=== PATIENT | male | born 1975 | race Caucasian/White ===

== ENCOUNTER 2021-03-28 13:35 | Emergency (ER) | payer OTHER, SELFPAY ==
[2021-03-28] VITALS (15 sets, daily range): BP systolic 115–136; BP diastolic 70–93; PULSE 74–96; RESP 20–27; TEMP 36.7; O2SAT 95–98
--- NOTE | 2021-03-28 13:52 | DI.RAD.S_ITS ---
PROCEDURE: XR CHEST 1V INDICATIONS: chest pain TECHNIQUE: One view of the chest was acquired. COMPARISON: None. FINDINGS: Surgical changes and devices: None. Lungs and pleura: Lungs are clear. No pleural effusions or pneumothorax. Mediastinum: Mediastinal contours appear normal. Heart size is normal. Bones and chest wall: No suspicious bony lesions. Overlying soft tissues appear unremarkable. IMPRESSION: No acute cardiopulmonary process demonstrated radiographically. Dictated by: Mariano Garcia M.D. on 03/28/2021 at 14:54 Approved by: Mariano Garcia M.D. on 03/28/2021 at 14:54
[2021-03-28 14:19] LABS: COVID19 -Nasal RAPID Negative (Negative)
[2021-03-28 14:21] LABS: Add Manual Diff / Slide Review NO; Basophils Absolute Auto 100 /uL (0-100); Eosinophils Absolute Auto 300 /uL (0-450); Eosinophils Percent Auto 3.2 % (2-4); Hematocrit 39.7 % (41-53); Hemoglobin 13.8 g/dL (13.5-17.5); Lymphocytes Absolute Auto 2300 /uL (1100-4500); Mean Corpuscular HGB Conc 34.8 % (30-36); Mean Corpuscular Hemoglobin 29.9 PG (26-34); Mean Corpuscular Volume 86.1 fL (80-100); Monocytes Absolute Auto 700 /uL (0-900); Monocytes Percent Auto 7.8 % (3-14); Neutrophils Absolute Auto 5500 /uL (1500-7000); Platelet Count 234 X10^3/uL (150-400); Red Blood Cell Count 4.61 X10^6/uL (4.5-5.9); Red Cell Distribution Width 12.8 % (11.6-14.8); White Blood Cell Count 8.9 X10^3/uL (4.5-11.0)
[2021-03-28 14:30] LABS: Alanine Aminotransferase 34 IU/L (<50); Albumin 4.5 g/dL (3.5-5.0); Albumin Globulin Ratio 1.3 (1.0-2.8); Alkaline Phosphatase 66 U/L (38-126); Aspartate Aminotransferase 25 IU/L (17-59); BUN Creatinine Ratio 13.6 (6-22); Bilirubin Total 0.4 mg/dL (0.2-1.3); Blood Urea Nitrogen 14 mg/dL (9-20); Calcium 9.8 mg/dL (8.4-10.2); Carbon Dioxide 28 mmol/L (22-32); Chloride 104 mmol/L (98-107); Creatine Kinase 228 U/L (55-170); Estimated Glomerular Filt Rate > 60.0 mL/min (>60); Globulin 3.4 g/dL (1.7-4.1); Glucose 118 mg/dL (70-100); HEMOLYSIS < 15 (0-50); Lipase 60 U/L (23-300); Potassium 4.8 mmol/L (3.4-5.1); Sodium 137 mmol/L (137-145); Total Protein 7.9 g/dL (6.3-8.2)
[2021-03-28 14:41] LABS: Troponin I < 0.012 ng/mL (0.01-0.034)
[2021-03-28 14:45] LABS: Creatine Kinase MB 2.36 ng/mL (<2.37)
--- NOTE | 2021-03-28 17:07 | ED_ITS ---
HPI - Chest Pain <Rojelio Ferro PA-C - Last Filed: 03/28/21 21:29> General Chief Complaint: Chest Pain Stated Complaint: Trouble breathing, chest/back pain Time Seen by Provider: 03/28/21 15:37 History of Present Illness HPI narrative: 45-year-old male with no reported past medical history presents to the ED with 1 day of left-sided chest pain. Patient reports that he had acute onset of left- sided chest pain that is sharp, aggravated by inspiration, radiates to the shoulder blade. Patient states he has been trying to shallow breathing in order to reduce the pain. Patient denies fever, chills. Patient endorses associated shortness of breath. Patient endorses cough for a week, with some occasional blood-tinged sputum. Patient is not vaccinated for COVID. Patient denies nausea, vomiting, lightheadedness, dizziness, syncope. Patient is a daily smoke r for the past 24 years. Patient denies history of blood clots. Patient denies trauma. Patient is unsure if his pain feels musculoskeletal. Patient has a history of GERD and gas pains that sometimes occur in his shoulders. Denies recent travel, immobilization, history of blood clots, leg swelling. Related Data Previous Rx's Medication Instructions Recorded apixaban 5 mg (74 tabs) tablets in See Rx Instructions .ROUTE 03/28/21 a dose pack ([employer] DVT-PE Treat .COMPLEX #74 ea 30D Start) Allergies Allergy/AdvReac Type Severity Reaction Status Date / Time No Known Drug Allergies Allergy Verified 03/28/21 13:46 Review of Systems <Rojelio Ferro PA-C - Last Filed: 03/28/21 21:29> Review of Systems ROS Unobtainable: All systems reviewed & are unremarkable except as noted in HPI and below Constitutional Constitutional: Denies chills, Denies fatigue, Denies fever(s), Denies frequent falls, Denies lethargy and Denies weakness Eyes Eyes: Denies change in vision, Denies eye discharge, Denies irritation and Denies loss of vision ENT Ears, Nose, Mouth, and Throat: Denies change in voice, Denies dizziness, Denies neck pain, Denies sore throat and Denies throat swelling Cardiovascular Cardiovascular: Reports chest pain, Denies irregular heart rhythm, Denies lightheadedness, Denies palpitations, Reports dyspnea, Denies dyspnea on exertion and Denies orthopnea Respiratory Respiratory: Denies cough, Reports dyspnea, Denies dyspnea on exertion and Denies wheezing Gastrointestinal Gastrointestinal: Denies abdominal pain, Denies change in bowel habits, Denies diarrhea, Denies nausea and Denies vomiting Genitourinary Genitourinary: Denies hematuria, Denies flank pain, Denies urinary incontinence and Denies urinary urgency Musculoskeletal Musculoskeletal: Denies back pain, Denies muscle weakness, Denies neck pain, Denies numbness and Denies tingling Integumentary/Breasts Skin/Breast: Denies pruritus, Denies erythema, Denies rash and Denies wounds Neurologic Neurologic: Denies behavioral changes, Denies confusion, Denies dizziness, Denies frequent falls, Denies loss of vision, Denies numbness, Denies tingling and Denies weakness Psychiatric Psychiatric: Denies anxiety, Denies behavioral changes, Denies confusion, Denies depression, Denies homicidal ideation and Denies suicidal ideation Endocrine Endocrine: Denies fatigue, Denies flushing and Denies palpitations Hematologic/Lymphatic Hematologic/Lymphatic: Denies easy bruising Allergic/Immunologic Allergic/Immunologic: Denies urticaria, Denies throat swelling and Denies wheezing Patient History <Rojelio Ferro PA-C - Last Filed: 03/28/21 21:29> Social History Smoking Status: Current every day smoker Smoking Status: Current every day smoker tobacco type: cigarettes alcohol intake frequency: holidays/special occasions only Substance Use Type: marijuana Exam <Rojelio Ferro PA-C - Last Filed: 03/28/21 21:29> Initial Vital Signs Initial Vital Signs: Vital Signs Temperature 98.1 F 03/28/21 13:47 Pulse Rate 96 H 03/28/21 13:47 Respiratory Rate 24 03/28/21 13:47 Blood Pressure 136/93 H 03/28/21 13:47 Pulse Oximetry 98 03/28/21 13:47 Const General: cooperative, healthy appearing and comfortable [facility] Head: normal to inspection Eyes General: appearance normal, both eyes and all related structures Neck Neck: normal visual inspection Chest Chest: normal inspection of the chest Resp Effort & Inspection: normal respiratory effort Auscultation: clear to auscultation bilaterally Cardio Rate: regular rate Rhythm: regular rhythm GI Other: Abdomen is soft, nondistended, nontender to palpation. General: No CVA tenderness Back/Spine/Pelvis Back: normal to inspection Skin General: no rashes or lesions noted Neuro General: patient alert, patient awake and patient oriented x3 Extrem General: normal to inspection Psych Appearance: grossly normal <Thuy Murry MD - Last Filed: 04/04/21 04:17> Initial Vital Signs Initial Vital Signs: Vital Signs Temperature 98.1 F 03/28/21 13:47 Pulse Rate 96 H 03/28/21 13:47 Respiratory Rate 24 03/28/21 13:47 Blood Pressure 136/93 H 03/28/21 13:47 Pulse Oximetry 98 03/28/21 13:47 Course <Rojelio Ferro PA-C - Last Filed: 03/28/21 21:29> Orders Ordered: Discontinued Medications Acetaminophen (Acetaminophen 325 Mg Tablet) 975 mg PO NOW ONE Stop: 03/28/21 17:23 Last Admin: 03/28/21 17:29 Dose: 975 mg Documented by: MICHELLE Al Hydrox/Mg Hydrox/Simethicone 20 ml/ Lidocaine HCl 15 ml 0 ml PO NOW ONE Stop: 03/28/21 17:23 Last Admin: 03/28/21 17:29 Dose: 15 ml Documented by: MICHELLE Famotidine (Famotidine 20 Mg/2 Ml Vial) 20 mg IV NOW JEANNIE Last Admin: 03/28/21 17:29 Dose: 20 mg Documented by: MICHELLE Metoclopramide HCl (Metoclopramide 10 Mg/2 Ml Inj) 10 mg IV NOW ONE Stop: 03/28/21 21:15 Vital Signs Vital signs: Vital Signs - 8 hr 03/28/21 13:47 03/28/21 13:59 03/28/21 14:00 Temperature 98.1 F Pulse Rate 96 H 84 83 Respiratory Rate 24 27 H 25 H Blood Pressure 136/93 H Pulse Oximetry 98 97 03/28/21 14:01 03/28/21 14:30 03/28/21 15:00 Temperature Pulse Rate 82 79 77 Respiratory Rate 27 H 25 H 22 Blood Pressure 115/75 122/78 121/80 Pulse Oximetry 98 96 96 03/28/21 15:30 03/28/21 16:00 03/28/21 16:30 Temperature Pulse Rate 76 78 80 Respiratory Rate 20 22 20 Blood Pressure 121/80 117/81 117/77 Pulse Oximetry 95 96 95 03/28/21 17:00 03/28/21 17:30 03/28/21 18:00 Temperature Pulse Rate 78 81 80 Respiratory Rate 22 22 24 Blood Pressure 120/83 123/87 117/82 Pulse Oximetry 96 97 96 03/28/21 18:30 03/28/21 19:00 03/28/21 19:35 Temperature Pulse Rate 78 74 Respiratory Rate 20 21 Blood Pressure 118/70 118/70 Pulse Oximetry 96 96 <Thuy Murry MD - Last Filed: 04/04/21 04:17> Orders Ordered: Discontinued Medications Acetaminophen (Acetaminophen 325 Mg Tablet) 975 mg PO NOW ONE Stop: 03/28/21 17:23 Last Admin: 03/28/21 17:29 Dose: 975 mg Documented by: MICHELLE Al Hydrox/Mg Hydrox/Simethicone 20 ml/ Lidocaine HCl 15 ml 0 ml PO NOW ONE Stop: 03/28/21 17:23 Last Admin: 03/28/21 17:29 Dose: 15 ml Documented by: MICHELLE Famotidine (Famotidine 20 Mg/2 Ml Vial) 20 mg IV NOW JEANNIE Last Admin: 03/28/21 17:29 Dose: 20 mg Documented by: MICHELLE Metoclopramide HCl (Metoclopramide 10 Mg/2 Ml Inj) 10 mg IV NOW ONE Stop: 03/28/21 21:15 Vital Signs Vital signs: Vital Signs - 8 hr 03/28/21 13:47 03/28/21 13:59 03/28/21 14:00 Temperature 98.1 F Pulse Rate 96 H 84 83 Respiratory Rate 24 27 H 25 H Blood Pressure 136/93 H Pulse Oximetry 98 97 03/28/21 14:01 03/28/21 14:30 03/28/21 15:00 Temperature Pulse Rate 82 79 77 Respiratory Rate 27 H 25 H 22 Blood Pressure 115/75 122/78 121/80 Pulse Oximetry 98 96 96 03/28/21 15:30 03/28/21 16:00 03/28/21 16:30 Temperature Pulse Rate 76 78 80 Respiratory Rate 20 22 20 Blood Pressure 121/80 117/81 117/77 Pulse Oximetry 95 96 95 01/31/22 17:00 03/28/21 17:30 03/28/21 18:00 Temperature Pulse Rate 78 81 80 Respiratory Rate 22 22 24 Blood Pressure 120/83 123/87 117/82 Pulse Oximetry 96 97 96 03/28/21 18:30 03/28/21 19:00 03/28/21 19:35 Temperature Pulse Rate 78 74 Respiratory Rate 20 21 Blood Pressure 118/70 118/70 Pulse Oximetry 96 96 MDM - Chest Pain <Rojelio Ferro PA-C - Last Filed: 03/28/21 21:29> Lab Data Lab results narrative: D-dimer elevated. Result diagrams: 03/28/21 14:13 03/28/21 14:13 Labs: Lab Results 03/28/21 03/28/21 03/28/21 Range/Units 13:50 14:13 14:13 WBC 8.9 (4.5-11.0) X10^3/uL RBC 4.61 (4.5-5.9) X10^6/uL Hgb 13.8 (13.5-17.5) g/dL Hct 39.7 L (41-53) % MCV 86.1 (80-100) fL MCH 29.9 (26-34) PG MCHC 34.8 (30-36) % RDW 12.8 (11.6-14.8) % Plt Count 234 (150-400) X10^3/uL Neut % (Auto) 62.0 (50-75) % Lymph % (Auto) 26.0 (25-40) % [place] % (Auto) 7.8 (3-14) % Eos % (Auto) 3.2 (2-4) % Baso % (Auto) 1.0 (0-2) % Neut # (Auto) 5500 (2685-5013) /uL Lymph # (Auto) 2300 (6347-7967) /uL [place] # (Auto) 700 (0-900) /uL Eos # (Auto) 300 (0-450) /uL Baso # (Auto) 100 (0-100) /uL D-Dimer (<230) ng/mL Sodium 137 (137-145) mmol/L Potassium 4.8 (3.4-5.1) mmol/L Chloride 104 (98-107) mmol/L Carbon Dioxide 28 (22-32) mmol/L BUN 14 (9-20) mg/dL Creatinine 1.03 (0.66-1.25) mg/dL Estimated GFR > 60.0 (>60) mL/min BUN/Creatinine Ratio 13.6 (6-22) Glucose 118 H (70-100) mg/dL Calcium 9.8 (8.4-10.2) mg/dL Magnesium 2.0 (1.6-2.3) mg/dL Total Bilirubin 0.4 (0.2-1.3) mg/dL AST 25 (17-59) IU/L ALT 34 (<50) IU/L Alkaline Phosphatase 66 (38-126) U/L Total Creatine Kinase 228 H (55-170) U/L CK-MB (CK-2) 2.36 (<2.37) ng/mL CK-MB (CK-2) Rel Index 1.0 L (1.5-5.0) % Troponin I < 0.012 (0.01-0.034) ng/mL NT-Pro-B Natriuret Pep (<125) pg/mL Total Protein 7.9 (6.3-8.2) g/dL Albumin 4.5 (3.5-5.0) g/dL Globulin 3.4 (1.7-4.1) g/dL Albumin/Globulin Ratio 1.3 (1.0-2.8) Lipase 60 (23-300) U/L SARS-CoV-2 (PCR) Negative (Negative) 03/28/21 03/28/21 Range/Units 14:13 14:13 WBC (4.5-11.0) X10^3/uL RBC (4.5-5.9) X10^6/uL Hgb (13.5-17.5) g/dL Hct (41-53) % MCV (80-100) fL MCH (26-34) PG MCHC (30-36) % RDW (11.6-14.8) % Plt Count (150-400) X10^3/uL Neut % (Auto) (50-75) % Lymph % (Auto) (25-40) % [place] % (Auto) (3-14) % Eos % (Auto) (2-4) % Baso % (Auto) (0-2) % Neut # (Auto) (0878-3275) /uL Lymph # (Auto) (8381-9347) /uL [place] # (Auto) (0-900) /uL Eos # (Auto) (0-450) /uL Baso # (Auto) (0-100) /uL D-Dimer 459 H (<230) ng/mL Sodium (137-145) mmol/L Potassium (3.4-5.1) mmol/L Chloride (98-107) mmol/L Carbon Dioxide (22-32) mmol/L BUN (9-20) mg/dL Creatinine (0.66-1.25) mg/dL Estimated GFR (>60) mL/min BUN/Creatinine Ratio (6-22) Glucose (70-100) mg/dL Calcium (8.4-10.2) mg/dL Magnesium (1.6-2.3) mg/dL Total Bilirubin (0.2-1.3) mg/dL AST (17-59) IU/L ALT (<50) IU/L Alkaline Phosphatase (38-126) U/L Total Creatine Kinase (55-170) U/L CK-MB (CK-2) (<2.37) ng/mL CK-MB (CK-2) Rel Index (1.5-5.0) % Troponin I (0.01-0.034) ng/mL NT-Pro-B Natriuret Pep 22 (<125) pg/mL Total Protein (6.3-8.2) g/dL Albumin (3.5-5.0) g/dL Globulin (1.7-4.1) g/dL Albumin/Globulin Ratio (1.0-2.8) Lipase (23-300) U/L SARS-CoV-2 (PCR) (Negative) Imaging Data Chest x-ray: Radiologist's Impression: PROCEDURE:? XR CHEST 1V ? INDICATIONS:? chest pain ? TECHNIQUE:? One view of the chest was acquired.? ? COMPARISON:? None. ? FINDINGS:? ? Surgical changes and devices:? None.? ? Lungs and pleura:? Lungs are clear.? No pleural effusions or pneumothorax.? ? Mediastinum:? Mediastinal contours appear normal.? Heart size is normal.? ? Bones and chest wall:? No suspicious bony lesions.? Overlying soft tissues appear unremarkable.? ? IMPRESSION:? No acute cardiopulmonary process demonstrated radiographically. ? ? Dictated by: Mariano Garcia M.D. on 03/28/2021 at 14:54 ? ? Approved by: Mariano Garcia M.D. on 03/28/2021 at 14:54 ? CT scan - chest: Radiologist's Impression: PROCEDURE:? CT ANGIO CHEST PE PROTOCOL ? INDICATIONS:? ?PE, elevated dimer, pleuritic CP, SOB ? TECHNIQUE:? After the administration of intravenous contrast, 2 mm thick sections acquired from the pulmonary apices to the posterior costophrenic angles.? 3-dimensional maximum intensity projection (MIP) coronal and sagittal reformats were then acquired through the thorax.? For radiation dose reduction, the following was used:? automated exposure control, adjustment of mA and/or kV according to patient size.? ? COMPARISON:? None. ? FINDINGS:? Image quality:? Excellent.? ? Pulmonary arteries:? Several filling defects noted in the right lower lobe subsegmental pulmonary arteries and consistent with small pulmonary emboli. ? Lungs and pleura:? Wedge-shaped pulmonary infiltrate noted in the periphery of the is superior segment left lower lobe.? Both pleural spaces are clear. ? Mediastinum:? Heart size is normal, without pericardial effusion.? No mediastinal or hilar adenopathy.? Thoracic aorta is normal in caliber and enhancement.? Esophagus is normal in caliber, without hiatal hernia.? ? Bones and chest wall:? No suspicious bony lesions.? Ribs and thoracic spine appear intact throughout.? Thyroid gland unremarkable.? No axillary or supraclavicular ad enopathy.? ? Abdomen:? Visualized upper abdominal solid organs appear normal in the early arterial phase of enhancement.? ? IMPRESSION:? ? 1. Subsegmental right lower lobe of pulmonary emboli without evidence of right heart strain ? 2. Left lower lobe small peripheral wedge-shaped pulmonary infiltrate.? ? Note:? Critical results were discussed with LUCAS Ferro at 05:39 PM [place] time on 03/28/21 ? Approved by: Khoi Murphy M.D. on 03/28/2021 at 17:40? ECG Data Interpretation: Normal sinus rhythm, no acute ST-T changes, no axis deviation. MDM Narrative Medical decision making narrative: 45-year-old male with no reported past medical history presents to the ED with 1 day of left-sided chest pain. Concern for ACS versus PE versus acute heart failure versus musculoskeletal sprain/strain versus GERD. Given history of hemoptysis, acute onset of inspirational, sharp chest pain, shortness of breath, suspicion for PE. Will order labs, troponin, EKG, chest x-ray, D-dimer. Will give GI cocktail, Pepcid AC, Tylenol for symptoms. Will reassess. CT chest shows subsegmental PEs. Will start patient on Eliquis. ED return precautions discussed with patient. Patient verbalized understanding. Patient to follow-up with PCP. Discharge patient. <Thuy Murry MD - Last Filed: 04/04/21 04:17> Lab Data Labs: Lab Results 03/28/21 03/28/21 03/28/21 Range/Units 13:50 14:13 14:13 WBC 8.9 (4.5-11.0) X10^3/uL RBC 4.61 (4.5-5.9) X10^6/uL Hgb 13.8 (13.5-17.5) g/dL Hct 39.7 L (41-53) % MCV 86.1 (80-100) fL MCH 29.9 (26-34) PG MCHC 34.8 (30-36) % RDW 12.8 (11.6-14.8) % Plt Count 234 (150-400) X10^3/uL Neut % (Auto) 62.0 (50-75) % Lymph % (Auto) 26.0 (25-40) % [place] % (Auto) 7.8 (3-14) % Eos % (Auto) 3.2 (2-4) % Baso % (Auto) 1.0 (0-2) % Neut # (Auto) 5500 (2781-9121) /uL Lymph # (Auto) 2300 (3300-2389) /uL [place] # (Auto) 700 (0-900) /uL Eos # (Auto) 300 (0-450) /uL Baso # (Auto) 100 (0-100) /uL D-Dimer (<230) ng/mL Sodium 137 (137-145) mmol/L Potassium 4.8 (3.4-5.1) mmol/L Chloride 104 (98-107) mmol/L Carbon Dioxide 28 (22-32) mmol/L BUN 14 (9-20) mg/dL Creatinine 1.03 (0.66-1.25) mg/dL Estimated GFR > 60.0 (>60) mL/min BUN/Creatinine Ratio 13.6 (6-22) Glucose 118 H (70-100) mg/dL Calcium 9.8 (8.4-10.2) mg/dL Magnesium 2.0 (1.6-2.3) mg/dL Total Bilirubin 0.4 (0.2-1.3) mg/dL AST 25 (17-59) IU/L ALT 34 (<50) IU/L Alkaline Phosphatase 66 (38-126) U/L Total Creatine Kinase 228 H (55-170) U/L CK-MB (CK-2) 2.36 (<2.37) ng/mL CK-MB (CK-2) Rel Index 1.0 L (1.5-5.0) % Troponin I < 0.012 (0.01-0.034) ng/mL NT-Pro-B Natriuret Pep (<125) pg/mL Total Protein 7.9 (6.3-8.2) g/dL Albumin 4.5 (3.5-5.0) g/dL Globulin 3.4 (1.7-4.1) g/dL Albumin/Globulin Ratio 1.3 (1.0-2.8) Lipase 60 (23-300) U/L SARS-CoV-2 (PCR) Negative (Negative) 03/28/21 03/28/21 Range/Units 14:13 14:13 WBC (4.5-11.0) X10^3/uL RBC (4.5-5.9) X10^6/uL Hgb (13.5-17.5) g/dL Hct (41-53) % MCV (80-100) fL MCH (26-34) PG MCHC (30-36) % RDW (11.6-14.8) % Plt Count (150-400) X10^3/uL Neut % (Auto) (50-75) % Lymph % (Auto) (25-40) % [place] % (Auto) (3-14) % Eos % (Auto) (2-4) % Baso % (Auto) (0-2) % Neut # (Auto) (6470-4583) /uL Lymph # (Auto) (6793-8342) /uL [place] # (Auto) (0-900) /uL Eos # (Auto) (0-450) /uL Baso # (Auto) (0-100) /uL D-Dimer 459 H (<230) ng/mL Sodium (137-145) mmol/L Potassium (3.4-5.1) mmol/L Chloride (98-107) mmol/L Carbon Dioxide (22-32) mmol/L BUN (9-20) mg/dL Creatinine (0.66-1.25) mg/dL Estimated GFR (>60) mL/min BUN/Creatinine Ratio (6-22) Glucose (70-100) mg/dL Calcium (8.4-10.2) mg/dL Magnesium (1.6-2.3) mg/dL Total Bilirubin (0.2-1.3) mg/dL AST (17-59) IU/L ALT (<50) IU/L Alkaline Phosphatase (38-126) U/L Total Creatine Kinase (55-170) U/L CK-MB (CK-2) (<2.37) ng/mL CK-MB (CK-2) Rel Index (1.5-5.0) % Troponin I (0.01-0.034) ng/mL NT-Pro-B Natriuret Pep 22 (<125) pg/mL Total Protein (6.3-8.2) g/dL Albumin (3.5-5.0) g/dL Globulin (1.7-4.1) g/dL Albumin/Globulin Ratio (1.0-2.8) Lipase (23-300) U/L SARS-CoV-2 (PCR) (Negative) Discharge Plan Departure Patient Disposition: Home Clinical Impression: Pulmonary embolism Instructions: DI for Pulmonary Embolism Activity Restrictions/Additional Instructions: You were evaluated in the ED today for chest pain. Your CT chest showed some pulmonary emboli or PEs. You have been started on anticoagulation with Eliquis. Please take the medications per instructions on the package. You will need longer-term anticoagulation for 3-6 months for which you should follow-up with your PCP as soon as possible. Please return to the ED if you have worsening symptoms such as increasing chest pain, worsening shortness of breath. Prescriptions: New Eliquis DVT-PE Treat 30D Start 5 mg (74 tabs) tablets,dose pack See Rx Instructions .ROUTE .COMPLEX Qty: 74 0RF Rx Instructions: orally per package directions <Thuy Murry MD - Last Filed: 04/04/21 04:17> Cosign ED Attending Cosreannaature Attestation: I was immediately available in the department for consultation throughout this patient's visit. I agree with documentation as above. Thuy Murry MD
[2021-03-28] MEDS: FAMOTIDINE 20 MG/2 ML VIAL IV (17:29)
[2021-03-28] MEDS: ACETAMINOPHEN 325 MG TABLET 975 MG PO (17:29)
[2021-03-28] MEDS: MAG HYDROX/ALUMINUM/SIMETH SUS 20 ML, LIDOCAINE VISCOUS 2% 15 ML PO (17:29)
[2021-03-28 17:39] LABS: D Dimer 459 ng/mL (<230)
--- NOTE | 2021-03-28 17:52 | DI.CT.S_ITS ---
PROCEDURE: CT ANGIO CHEST PE PROTOCOL INDICATIONS: ?PE, elevated dimer, pleuritic CP, SOB TECHNIQUE: After the administration of intravenous contrast, 2 mm thick sections acquired from the pulmonary apices to the posterior costophrenic angles. 3-dimensional maximum intensity projection (MIP) coronal and sagittal reformats were then acquired through the thorax. For radiation dose reduction, the following was used: automated exposure control, adjustment of mA and/or kV according to patient size. COMPARISON: None. FINDINGS: Image quality: Excellent. Pulmonary arteries: Several filling defects noted in the right lower lobe subsegmental pulmonary arteries and consistent with small pulmonary emboli. Lungs and pleura: Wedge-shaped pulmonary infiltrate noted in the periphery of the is superior segment left lower lobe. Both pleural spaces are clear. Mediastinum: Heart size is normal, without pericardial effusion. No mediastinal or hilar adenopathy. Thoracic aorta is normal in caliber and enhancement. Esophagus is normal in caliber, without hiatal hernia. Bones and chest wall: No suspicious bony lesions. Ribs and thoracic spine appear intact throughout. Thyroid gland unremarkable. No axillary or supraclavicular adenopathy. Abdomen: Visualized upper abdominal solid organs appear normal in the early arterial phase of enhancement. IMPRESSION: 1. Subsegmental right lower lobe of pulmonary emboli without evidence of right heart strain 2. Left lower lobe small peripheral wedge-shaped pulmonary infiltrate. Note: Critical results were discussed with LUCAS Ferro at 05:39 PM [place] time on 03/28/21 Approved by: Khoi Murphy M.D. on 03/28/2021 at 17:40
[2021-03-28 18:05] LABS: NT-proBNP (BNP-Adult 18+) 22 pg/mL (<125)
--- NOTE | 2021-03-28 18:49 | PC.NURSE ---
pt resting quietly in room waiting ct results and disposition
== END 2021-03-28 19:38 | disposition home or self-care (01) ==
PROVIDERS: Emergency Medicine; Emergency Provider Student in an Organized Health Care Education/Training Program
DX: I26.94 Multiple subsegmental thrombotic pulmonary emboli without acute cor pulmonale (principal); Z20.822 Contact with and (suspected) exposure to COVID-19
CPT/HCPCS: 36415; 71045; 71275; 80053; 82550; 82553; 83690; 83735; 83880; 84484; 85025; 85379; 87635; 93005; 96374; 99285; C9803; Q9967

== ENCOUNTER 2021-09-20 20:31 | Emergency (ER) | payer OTHER, SELFPAY ==
[2021-09-20 20:40] VITALS: BP 141/92; PULSE 110; RESP 18; TEMP 36.1; O2SAT 98
[2021-09-20 21:59] VITALS: BP 145/99; PULSE 98; RESP 18; O2SAT 98
--- NOTE | 2021-09-20 22:30 | DI.US.S_ITS ---
PROCEDURE: US SCROTUM INDICATIONS: LEFT TESTICULAR PAIN TECHNIQUE: Real-time scanning was performed of the scrotum and testicles, with image documentation. Color and pulse Doppler interrogation was performed of both testicles. COMPARISON: None. FINDINGS: Right: Testicle is normal in size at 2.5 x 3.5 x 4.7 cm, and homogenous in echotexture. Epididymis is normal in overall size and morphology. No hydrocele or varicoceles. Overlying scrotal skin is normal in thickness. Left: Testicle is normal in size at 2.5 x 3.0 x 4.9 cm, and homogeneous in echotexture. Approximately 5 mm left epididymal head cyst. Epididymis is otherwise normal in overall size and morphology. No hydrocele or varicoceles. Overlying scrotal skin is normal in thickness. Doppler: Color and pulse Doppler demonstrate normal and symmetric arterial flow in both testicles. IMPRESSION: Approximately 5 mm left epididymal head cyst. Otherwise normal study. Dictated by: Mariano Garcia M.D. on 09/20/2021 at 23:57 Approved by: Mariano Garcia M.D. on 09/20/2021 at 23:58
--- NOTE | 2021-09-20 23:45 | ED_ITS ---
HPI - Male Genitourinary General Chief complaint: Urogenital-Male Stated complaint: possible penile injury Time Seen by Provider: 09/20/21 21:56 Source: patient Mode of arrival: Ambulatory History of Present Illness HPI Narrative: 45-year-old male nonsmoker without significant medical history presents with a chief complaint of left testicular pain that started about 1 week ago. He states that he was crawling underneath the deck of his house to do some work when he felt a pulling or tugging sensation and then over the following few days his pain intensified. He denies any obvious swelling, redness or discoloration. He has no dysuria, frequency or urgency. He denies any dizziness, weakness, lightheadedness nor chest pain, shortness of breath or cough. He states the symptoms are improved and episodic at this point time. He states he has a history of epididymitis and also prior urine infections and wanted to be checked Related Data Previous Rx's Medication Instructions Recorded apixaban 5 mg (74 tabs) tablets in See Rx Instructions PO .COMPLEX 03/28/21 a dose pack ([employer] DVT-PE Treat #74 ea 30D Start) Allergies Allergy/AdvReac Type Severity Reaction Status Date / Time No Known Drug Allergies Allergy Verified 03/28/21 13:46 Review of Systems Review of Systems Narrative: GENERAL: Denies chills, fatigue, malaise, fever, sweats. HEENT: Denies sinus pain, ear pain, sore throat, difficulty swallowing, dizziness. RESPIRATORY: Denies dyspnea, cough, wheezing, hemoptysis, sputum. CARDIOVASCULAR: Denies chest pain, palpitations, orthopnea, edema, GASTROINTESTINAL: Denies nausea, vomiting, abdominal pain, diarrhea, constipation, melena. : See HPI MUSCULOSKELETAL: denies weakness, joint pain, or bony pain SKIN: Denies rash, skin lesions, or other NEUROLOGIC: Denies weakness, headache, numbness, change in speech, confusion, seizures, incoordination. PSYCHIATRIC: No concerning psychosocial issues. 12 point review of systems is negative except for those stated above Patient History Social History Smoking Status: Current every day smoker Smoking Status: Current every day smoker tobacco type: cigarettes alcohol intake frequency: holidays/special occasions only Substance Use Type: marijuana Exam Narrative Exam Narrative: GENERAL: [45] year old patient appears stated age. Well-developed patient, in mild distress. HEAD: Atraumatic. Normocephalic. EYES: Pupils equal round and reactive. Extraocular motions intact. No scleral icterus. No injection or drainage. ENT: Nose without bleeding, purulent drainage. Throat without erythema, tonsillar hypertrophy or exudate. Airway patent. NECK: Trachea midline. Non tender CARDIOVASCULAR: Regular rate and rhythm without murmurs, gallops, or rubs. RESPIRATORY: Clear to auscultation. Breath sounds equal bilaterally. No wheezes, rales, or rhonchi. GASTROINTESTINAL: Abdomen soft, non-tender, nondistended. : Minimal tenderness to palpation of the superior pole of the left testicle, no swelling, induration, fluctuance, erythema or discoloration. No penile drainage EXTREMITIES: No edema or joint tenderness. BACK: Nontender without deformity or crepitance. No flank tenderness. NEURO: AOx3. SKIN: No rash or erythema of visible areas Initial Vital Signs Initial Vital Signs: Vital Signs Temperature 97 F L 09/20/21 20:40 Pulse Rate 110 H 09/20/21 20:40 Respiratory Rate 18 09/20/21 20:40 Blood Pressure 141/92 H 09/20/21 20:40 Pulse Oximetry 98 09/20/21 20:40 Oxygen Delivery Method 09/20/21 20:40 Course Orders Ordered: ED Orders 09/20/21 22:30 US scrotum Stat Vital Signs Vital signs: Vital Signs - 8 hr 09/20/21 20:40 09/20/21 21:59 Temperature 97 F L Pulse Rate 110 H 98 H Respiratory Rate 18 18 Blood Pressure 141/92 H 145/99 H Pulse Oximetry 98 98 Oxygen Delivery Method Room Air Room Air MDM - Male Genitourinary Lab Data Labs: Urine Dip Bedside Urine Glucose Negative Bedside Urine Bilirubin - Negative Bedside Urine Ketone - Negative Urine Specific [place] 1.015 Bedside Urine Occult Blood - Negative Bedside Urine pH 6.0 Bedside Urine Protein - Negative Bedside Urine Urobilinogen - Negative Imaging Data US Scrotum: Radiologist's Impression: Luca Alicea??45??M??1975 ? Allergy/Adv: No Known Drug Allergies (More??) Close Scrotum Ultrasound (Signed) Mariano Garcia - 09/20/21 Chest CTA (Signed) Khoi Murphy - 03/28/21 Chest X-Ray (Signed) Mariano Garcia - 03/28/21 [place] [address] Ultrasound Report Signed Patient: Luca Alicea MR#: [id number] : 1975 Acct:[id number] Age/Sex: 45 / M Date of Service: 09/20/21 Loc: ED Accession Number: [id number] ?? Procedure: US scrotum Ordering Provider: Carlos Eduardo Tiwari D.O. PROCEDURE:? US SCROTUM ? INDICATIONS:? LEFT TESTICULAR PAIN ? TECHNIQUE:? Real-time scanning was performed of the scrotum and testicles, with image documentation.? Color and pulse Doppler interrogation was performed of both testicles.? ? COMPARISON:? None. ? FINDINGS:? ? Right:? Testicle is normal in size at 2.5 x 3.5 x 4.7 cm, and homogenous in echotexture.? Epididymis is normal in overall size and morphology.? No hydrocele or nevin icoceles.? Overlying scrotal skin is normal in thickness.? ? Left:? Testicle is normal in size at 2.5 x 3.0 x 4.9 cm, and homogeneous in echotexture.? Approximately 5 mm left epididymal head cyst.? Epididymis is otherwise normal in overall size and morphology.? No hydrocele or varicoceles.? Overlying scrotal skin is normal in thickness.? ? Doppler:? Color and pulse Doppler demonstrate normal and symmetric arterial flow in both testicles.? ? IMPRESSION:? Approximately 5 mm left epididymal head cyst.? Otherwise normal study. ? ? Dictated by: Mariano Garcia M.D. on 09/20/2021 at 23:57 ? ? Approved by: Mariano Garcia M.D. on 09/20/2021 at 23:58 ? Discharge Plan Departure Patient Disposition: Home Clinical Impression: Cyst of epididymis, Left testicular pain Activity Restrictions/Additional Instructions: *You have been diagnosed with [left testicle pain, as we discussed there is no evidence of testicular torsion, urine infection or other obvious source of your discomfort.] *What to do: *Please continue to take your regular medications as directed. [ ] New medication prescriptions sent to your pharmacy: [ ] [ ] New medication written as a paper prescription [ x] No new medications given *Please follow up with your primary care provider in 2-3 days, call for an appointment. Let them know you were seen in the Emergency Department and that we ask that you be seen in follow up. We will electronically transmit a record of today's note if your PCP is in our system *If you do not have a primary care provider please contact the [facility] Resource line at [phone]. They will ask some questions about your medical history and help get you set up with a doctor in the community. *Return to Emergency Department if you should have any new, worsening or concerning symptoms, such as [fever greater than 101 F, shaking chills, worsening pain, persistent vomiting or other bothersome symptoms] Prescriptions: No Action Eliquis DVT-PE Treat 30D Start 5 mg (74 tabs) tablets,dose pack See Rx Instructions .ROUTE .COMPLEX Qty: 74 0RF Rx Instructions: orally per package directions Referrals: ProviderEric [Primary Care Provider] - Visit Report Forms: Patient Portal/API
[2021-09-21 00:13] VITALS: BP 140/90; PULSE 88; RESP 18; O2SAT 98
== END 2021-09-21 00:13 | disposition home or self-care (01) ==
PROVIDERS: Emergency Provider Emergency Medicine
DX: N50.3 Cyst of epididymis (principal); N50.812 Left testicular pain
CPT/HCPCS: 76870; 81003; 99282; 99283

== ENCOUNTER 2022-09-03 11:53 | Emergency (ER) | payer OTHER, SELFPAY ==
[2022-09-03 12:07] VITALS: BP 161/95; PULSE 78; RESP 16; TEMP 36.7; O2SAT 99; BMI 30.9
--- NOTE | 2022-09-03 12:23 | DI.RAD.S_ITS ---
PROCEDURE: XR KUB INDICATIONS: flank pain, dysuria, constipation TECHNIQUE: One view of the abdomen acquired. COMPARISON: None. FINDINGS: Surgical changes and devices: None. Bowel: Bowel gas pattern is normal. Soft tissues: No suspicious abdominal calcifications. Visualized solid organ contours appear normal in size. Bones: No suspicious bony lesions. IMPRESSION: No acute plain film abnormality of the abdomen. Dictated by: Simone Ramírez M.D. on 09/03/2022 at 13:37 Approved by: Simone Ramírez M.D. on 09/03/2022 at 13:38
--- NOTE | 2022-09-03 12:29 | ED_ITS ---
HPI - Male Genitourinary <Gloria Owens PA-C - Last Filed: 09/03/22 20:21> General Chief complaint: Urogenital-Male Stated complaint: Groin pain Time Seen by Provider: 09/03/22 12:22 Source: patient Mode of arrival: Ambulatory History of Present Illness HPI Narrative: This is a 46-year-old male with a history of ?prostate issues? known hemorrhoids, previous history of epididymitis, who presents with concern for multiple complaints. Patient states he is feel feels he has been having some glass sensation or burning with urination for the last week or so also feels like he is had some ongoing issues with constipation that improved a couple days ago with taking [id number] laxative. In addition patient is concerned he may be having prostate problems as he feels like he is having ?pressure back there? that seems to be worse with bowel movements and is associated with some mild pain. He also states that he and his have been having very aggressive sex and having a lot of sex recently and generally feels that he may have ?injured something? as his groin and penis feel generally a little sore. He has not seen blood in his urine or his stool. He does endorse in 2010 after he got back from [facility] he was having burning with urination issues and was told he had prostate problems was put on antibiotics. He also took antibiotics a couple months ago for similar symptoms ever he was seen at walk-in clinic in [place]. He states his symptoms today do not feel exactly the same as this although he notes he feels he needs to get into see Urology for ongoing problems with his prostate. He says he is had a fever of up to 99.6 on and off in the last few days and has been feeling a little chilled. He has also had some mild nausea and been having some flank pain that he sometimes feels radiates up. He has been feeling this pain on both sides. He endorses recently having irritation and mild erythema at the tip of the penis low he states this seems to be improving and his symptoms have generally been resolving somewhat over the last 3 days. He does not have concern for sexually transmitted infections he states he has 1 sexual partner who is his . He does endorse about a week and a half ago using a rectal vibrator sex toy; denies any possibility of any thing retained in his rectum. Related Data Previous Rx's Medication Instructions Recorded apixaban 5 mg (74 tabs) tablets in See Rx Instructions PO .COMPLEX 03/28/21 a dose pack ([employer]li[employer]utrab[employer] DVT-PE Treat #74 ea 30D Start) sulfamethoxazole 800 1 tab PO Q12H prostatitis 28 days 09/03/22 mg-trimethoprim 160 mg tablet #56 tabs (Bactrim DS) Allergies Allergy/AdvReac Type Severity Reaction Status Date / Time No Known Drug Allergies Allergy Verified 03/28/21 13:46 Review of Systems <Gloria Owens PA-C - Last Filed: 09/03/22 20:21> Review of Systems Narrative: See HPI Patient History <Gloria Owens PA-C - Last Filed: 09/03/22 20:21> Social History Smoking Status: Current every day smoker Smoking Status: Current every day smoker tobacco type: cigarettes alcohol intake frequency: holidays/special occasions only Substance Use Type: marijuana Exam <Gloria Owens PA-C - Last Filed: 09/03/22 20:21> Narrative Exam Narrative: and rectal exam are performed with ODESSA Veras in the room GENERAL: [46] year old patient appears stated age. Well-developed patient, in mild distress. HEAD: Atraumatic. Normocephalic. EYES: Pupils equal round and reactive. Extraocular motions intact. No scleral icterus. No injection or drainage. ENT: Nose without bleeding, purulent drainage. Throat without erythema, tonsillar hypertrophy or exudate. Airway patent. NECK: Trachea midline. Non tender CARDIOVASCULAR: Regular rate and rhythm without murmurs, gallops, or rubs. RESPIRATORY: Clear to auscultation. Breath sounds equal bilaterally. No wheezes, rales, or rhonchi. GASTROINTESTINAL: Abdomen soft, there is very mild suprapubic midline tenderness, otherwise non-tender, nondistended, mild right flank tenderness/CVA tenderness. /rectal: Urethral meatus is mildly tender distally just proximal to the glans. There is no erythema rash or lesion of the skin noted. There is no appreciable swelling. No testicular masses noted, mild tenderness of the posterior testicles/epididymis bilaterally. Rectal exam notable for non thrombosed hemorrhoids, mild to moderate prostate tenderness. Exam is otherwise unremarkable EXTREMITIES: No edema or joint tenderness. BACK: Nontender without deformity or crepitance. No flank tenderness. NEURO: AOx3. SKIN: No rash or erythema of visible areas Initial Vital Signs Initial Vital Signs: Vital Signs Temperature 98.0 F 09/03/22 12:07 Pulse Rate 78 09/03/22 12:07 Respiratory Rate 16 09/03/22 12:07 Blood Pressure 161/95 H 09/03/22 12:07 Pulse Oximetry 99 09/03/22 12:07 Oxygen Delivery Method Room Air 09/03/22 12:07 <Alicia Gilmore DO - Last Filed: 09/04/22 08:09> Initial Vital Signs Initial Vital Signs: Vital Signs Temperature 98.0 F 09/03/22 12:07 Pulse Rate 78 09/03/22 12:07 Respiratory Rate 16 09/03/22 12:07 Blood Pressure 161/95 H 09/03/22 12:07 Pulse Oximetry 99 09/03/22 12:07 Oxygen Delivery Method Room Air 09/03/22 12:07 Course <Gloria Owens PA-C - Last Filed: 09/03/22 20:21> Orders Ordered: ED Orders 09/03/22 12:23 XR KUB Stat 09/03/22 12:28 Chlamydia Gonorrhea PCR -URINE Stat Urine Microscopic Stat Vital Signs Vital signs: Vital Signs - 8 hr 09/03/22 14:55 Pulse Rate 79 Respiratory Rate 18 Blood Pressure 148/78 H Pulse Oximetry 97 Oxygen Delivery Method Room Air <DO Raj Hutchinson Last Filed: 09/04/22 08:09> Orders Ordered: ED Orders 09/03/22 12:23 XR KUB Stat 09/03/22 12:28 Chlamydia Gonorrhea PCR -URINE Stat Urine Microscopic Stat Vital Signs Vital signs: Vital Signs - 8 hr 09/03/22 14:55 Pulse Rate 79 Respiratory Rate 18 Blood Pressure 148/78 H Pulse Oximetry 97 Oxygen Delivery Method Room Air MDM - Male Genitourinary <KRISTEN Jonas Last Filed: 09/03/22 20:21> Differential Diagnosis Differential diagnosis: Likely urinary tract infection, urethritis, epididymitis, prostatitis and other (muscle strain, hemorrhoids) Medical Records Attestation: I reviewed the patient's medical records. Lab Data Attestation: I reviewed the patient's lab results. Labs: Lab Results 09/03/22 09/03/22 Range/Units 12:28 12:28 Urine RBC None seen (0-5/HPF) Urine WBC None seen (0-5/HPF) Ur Squamous Epith Cells 0-1 /hpf (0-5/HPF) Urine Bacteria None seen (None) Ur Culture Indicated? Cult not indicated Ur Chlamydia DNA (PCR) Not detected N gonorrhoeae DNA (PCR) Not detected Urine Dip Bedside Urine Glucose Negative Bedside Urine Bilirubin - Negative Bedside Urine Ketone - Negative Urine Specific [place] 1.010 Bedside Urine Occult Blood - Negative Bedside Urine pH 6.0 Bedside Urine Protein - Negative Bedside Urine Urobilinogen - Negative Bedside Urine Nitrite - Negative Bedside Urine Leukocytes - Negative Esterase Imaging Data XR kub: My Impression: Agree with Radiology interpretation Radiologist's Impression: [address] [address] XRay Report Signed Patient: Luca Alicea MR#: [id number] : 1975 Acct:[id number] Age/Sex: 46 / M Date of Service: 09/03/22 Loc: ED Accession Number: [id number] ?? Procedure: XR KUB Ordering Provider: Gloria Owens P.A-C PROCEDURE:? XR KUB ? INDICATIONS:? flank pain, dysuria, constipation ? TECHNIQUE:? One view of the abdomen acquired.? ? COMPARISON:? None. ? FINDINGS:? ? Surgical changes and devices:? None.? ? Bowel:? Bowel gas pattern is normal.? ? Soft tissues:? No suspicious abdominal calcifications.? Visualized solid organ contours appear normal in size.? ? Bones:? No suspicious bony lesions.? ? IMPRESSION:? No acute plain film abnormality of the abdomen. ? ? Dictated by: Simone Ramírez M.D. on 09/03/2022 at 13:37 ? ? Approved by: Simone Ramírez M.D. on 09/03/2022 at 13:38?? MDM Narrative Medical decision making narrative: This is a 46-year-old male with history of prostate problems, epididymitis who presents with concern for burning of the urethra, generalized groin discomfort and mild pain, rectal pressure in the setting of recent frequent and aggressive sex with his and use of anal sex toys over the past 10 days. Patient was treated with antibiotics 2 months ago for similar symptoms and states he has p reviously seen urology for prostate problems but not in the last 3 years since the pandemic. Endorses a problem with persistent ?bacterial infections? of the prostate and region. Patient is generally well-appearing with unremarkable vitals today, seems anxious and concerned about his symptoms. Urine is obtained and a UA is not suggestive of a UTI, gonorrhea chlamydia is negative today, patient's exam is notable for mild tenderness of the urethral meatus proximal to the glans as well as some prostate tenderness, given patient's history and exam findings today despite the negative urine he is placed on a 4 week course of double-strength Bactrim and advised to follow up closely with Urology. He is also advised to abstain from sexual intercourse for the next 7-10 days or until he feels he is having improvement/resolution of symptoms. Return precautions provided, follow-up plan discussed, all questions answered. <Alicia Gilmore, - Last Filed: 09/04/22 08:09> Lab Data Labs: Lab Results 09/03/22 09/03/22 Range/Units 12:28 12:28 Urine RBC None seen (0-5/HPF) Urine WBC None seen (0-5/HPF) Ur Squamous Epith Cells 0-1 /hpf (0-5/HPF) Urine Bacteria None seen (None) Ur Culture Indicated? Cult not indicated Ur Chlamydia DNA (PCR) Not detected N gonorrhoeae DNA (PCR) Not detected Urine Dip Bedside Urine Glucose Negative Bedside Urine Bilirubin - Negative Bedside Urine Ketone - Negative Urine Specific [place] 1.010 Bedside Urine Occult Blood - Negative Bedside Urine pH 6.0 Bedside Urine Protein - Negative Bedside Urine Urobilinogen - Negative Bedside Urine Nitrite - Negative Bedside Urine Leukocytes - Negative Esterase Discharge Plan Departure Patient Disposition: Home Clinical Impression: Urethritis, Prostatitis Activity Restrictions/Additional Instructions: *You have been diagnosed with [urethritis, prostatitis] *What to do: *Please continue to take your regular medications as directed. [ X] New medication prescriptions sent to your pharmacy: [ ] [ ] New medication written as a paper prescription [ ] No new medications given *Please follow up with your primary care provider in 2-3 days, call for an appointment. Let them know you were seen in the Emergency Department and that we ask that you be seen in follow up. We will electronically transmit a record of today's note if your PCP is in our system. We did an exam today and checked her urine and also did an x-ray to look at kidney ureters bladder. Your symptoms do not seem consistent with a stone in there was none seen on the imaging, I do suspect that you have urethritis and prostatitis, your prostatitis symptoms seem to be mild but possible that you have chronic prostatitis. I am placing on antibiotics for the next 4 weeks for this. I would like you to follow-up with your with Urology and follow up with your primary care provider as well. I also recommend that you abstain from having sex for at least the next 5-7 days as long as your having some soreness and discomfort in your genital region. Please monitor for new or worsening symptoms and make sure that you seek re-evaluation if these arise. *If you do not have a primary care provider please contact the [facility] Resource line at [phone]. They will ask some questions about your medical history and help get you set up with a doctor in the community. *Return to Emergency Department if you should have any new, worsening or concerning symptoms, such as [fever greater than 101 F, shaking chills, worsening pain, persistent vomiting or other bothersome symptoms] Prescriptions: New sulfamethoxazole-trimethoprim [Bactrim DS] 800-160 mg tablet 1 tab PO Q12H 28 Days Qty: 56 0RF No Action Eliquis DVT-PE Treat 30D Start 5 mg (74 tabs) tablets,dose pack See Rx Instructions .ROUTE .COMPLEX Qty: 74 0RF Rx Instructions: orally per package directions Referrals: ProviderEric [Primary Care Provider] - Stand Alone Forms: Patient Portal/API <Alicia Gilmore DO - Last Filed: 09/04/22 08:09> Cosign ED Attending Jarred Attestation: I was immediately available in the department for consultation. Documentation has been reviewed.
[2022-09-03 12:44] LABS: Bacteria Urine None Seen; Culture Indicated Urine Cult Not Indicated; RBC Urine None Seen (0-5/HPF); Squamous Epithelial Cell Urine 0-1 /HPF (0-5/HPF); WBC Urine None Seen (0-5/HPF)
[2022-09-03 14:15] LABS: Urine Chlamydia NOT DETECTED; Urine N gonorrhoeae NOT DETECTED
[2022-09-03 14:55] VITALS: BP 148/78; PULSE 79; RESP 18; O2SAT 97
== END 2022-09-03 14:58 | disposition home or self-care (01) ==
PROVIDERS: Emergency Provider Student in an Organized Health Care Education/Training Program
DX: N34.2 Other urethritis (principal); N41.9 Inflammatory disease of prostate, unspecified
CPT/HCPCS: 74018; 81003; 81015; 87491; 87591; 99283

== ENCOUNTER 2023-03-19 08:11 | Emergency (ER) | payer OTHER, SELFPAY ==
[2023-03-19] VITALS (9 sets, daily range): BP systolic 139–160; BP diastolic 91–99; PULSE 58–81; RESP 10–18; TEMP 36.8; O2SAT 96–99; BMI 29.9
--- NOTE | 2023-03-19 08:24 | DI.RAD.S_ITS ---
PROCEDURE: XR CHEST 1V INDICATIONS: chest pain TECHNIQUE: One view of the chest was acquired. COMPARISON: [facility], CR, XR CHEST 1V, 03/28/2021, 14:06. FINDINGS: Surgical changes and devices: None. Lungs and pleura: Lungs are clear. No pleural effusions or pneumothorax. Mediastinum: Mediastinal contours appear normal. Heart size is normal. Bones and chest wall: No suspicious bony lesions. Overlying soft tissues appear unremarkable. IMPRESSION: No acute cardiopulmonary abnormality is seen. Dictated by: Clarisse Strickland M.D. on 03/19/2023 at 9:05 Approved by: Clarisse Strickland M.D. on 03/19/2023 at 9:05
[2023-03-19 08:30] LABS: Add Manual Diff / Slide Review NO; Basophils Absolute Auto 100 /uL (0-100); Basophils Percent Auto 1.1 % (0-2); Eosinophils Absolute Auto 200 /uL (0-450); Eosinophils Percent Auto 2.5 % (2-4); Hematocrit 38.2 % (41-53); Hemoglobin 13.2 g/dL (13.5-17.5); Lymphocytes Absolute Auto 2300 /uL (1100-4500); Lymphocytes Percent Auto 33.4 % (25-40); Mean Corpuscular HGB Conc 34.7 % (30-36); Mean Corpuscular Hemoglobin 30.2 PG (26-34); Mean Corpuscular Volume 87.1 fL (80-100); Monocytes Absolute Auto 700 /uL (0-900); Monocytes Percent Auto 10.4 % (3-14); Neutrophils Absolute Auto 3600 /uL (1500-7000); Neutrophils Percent Auto 52.6 % (50-75); Platelet Count 216 X10^3/uL (150-400); Red Blood Cell Count 4.38 X10^6/uL (4.5-5.9); Red Cell Distribution Width 12.8 % (11.6-14.8); White Blood Cell Count 6.7 X10^3/uL (4.5-11.0)
[2023-03-19 08:37] LABS: INR 0.9 (0.9-1.3); Prothrombin Time 10.4 SECONDS (9.4-12.5)
[2023-03-19 08:40] LABS: PTT Partial Thromboplastin Tim 29 SECONDS (25.1-36.5)
[2023-03-19 08:43] LABS: Alanine Aminotransferase 27 IU/L (<50); Albumin 4.4 g/dL (3.5-5.0); Albumin Globulin Ratio 1.5 (1.0-2.8); Alkaline Phosphatase 46 U/L (38-126); Aspartate Aminotransferase 24 IU/L (17-59); BUN Creatinine Ratio 16.5 (6-22); Bilirubin Total 0.4 mg/dL (0.2-1.3); Blood Urea Nitrogen 16 mg/dL (9-20); Calcium 10.1 mg/dL (8.4-10.2); Carbon Dioxide 27 mmol/L (22-32); Chloride 103 mmol/L (98-107); Creatine Kinase 287 U/L (55-170); Estimated Glomerular Filt Rate > 60 mL/min (>60); Glucose 138 mg/dL (70-100); HEMOLYSIS < 15 (0-50); Lipase 109 U/L (23-300); Magnesium 1.9 mg/dL (1.6-2.3); Potassium 3.8 mmol/L (3.4-5.1); Sodium 137 mmol/L (137-145); Total Protein 7.4 g/dL (6.3-8.2)
--- NOTE | 2023-03-19 08:45 | ED.CHESTPAIN ---
HPI - Chest Pain General Chief Complaint: Chest Pain Stated Complaint: chest pain, pain in L leg and arm Time Seen by Provider: 03/19/23 08:21 Source: patient Mode of arrival: Ambulatory Limitations: no limitations History of Present Illness HPI narrative: Chest pain, intermittent body pains, elevated blood pressures at home x1 week. Unable to come to the ED previously as it was snowed in. Remote hx of PE, has since finished anticoagulation. Chest pain is sharp, intermittent, on top of his chest, occasionally radiates to shoulder. Has started working out more frequently Related Data Previous Rx's Medication Instructions Recorded apixaban 5 mg (74 tabs) tablets in See Rx Instructions PO .COMPLEX 03/28/21 a dose pack (EliquMyDocTime DVT-PE Treat #74 ea 30D Start) Allergies Allergy/AdvReac Type Severity Reaction Status Date / Time No Known Drug Allergies Allergy Verified 03/28/21 13:46 Review of Systems Review of Systems Narrative: negative except as noted above Patient History Social History Smoking Status: Former smoker Smoking Status: Former smoker tobacco type: cigarettes alcohol intake frequency: holidays/special occasions only Substance Use Type: does not use Exam Initial Vital Signs Initial Vital Signs: Vital Signs Pulse Rate 81 03/19/23 08:16 Respiratory Rate 18 03/19/23 08:16 Pulse Oximetry 96 03/19/23 08:16 ?Const: Awake, alert, no acute distress, nontoxic appearing Cardiac: regular rate, regular rhythm, reproducible chest pain over L pectoralis muscle RESP: unlabored, clear bilaterally, no wheezing GI: Atraumatic, soft, nontender, nondistended, no rebound, no guarding MSK: Atraumatic, full range of motion, pulses equal Skin: Warm, Dry, intact, no rashes Neuro: AO x3, CN II-XII grossly intact, moves all extremities Psych: affect normal, mood normal, not suicidal, not homicidal Course Orders Ordered: Discontinued Medications Aspirin (Aspirin 81 Mg Chew Tab) 324 mg PO NOW ONE Stop: 03/19/23 08:25 Last Admin: 03/19/23 08:46 Dose: 324 mg Documented By: RB Sodium Chloride (Normal Saline 0.9%) 1,000 mls @ 1,000 mls/hr IV BOLUS ONE Stop: 03/19/23 10:04 Last Infusion: 03/19/23 10:02 Dose: Infused Documented By: Admin: 03/19/23 09:15 Dose: 1,000 mls/hr Documented By: RB Ketorolac Tromethamine (Ketorolac 30 Mg/Ml Vial) 15 mg IV NOW ONE Stop: 03/19/23 09:06 Last Admin: 03/19/23 09:15 Dose: 15 mg Documented By: RB Vital Signs Vital signs: Vital Signs - 8 hr 03/19/23 08:16 03/19/23 08:17 03/19/23 08:17 Temperature Pulse Rate 81 75 Respiratory Rate 18 10 L Blood Pressure 160/99 H Pulse Oximetry 96 97 Oxygen Delivery Method 03/19/23 08:20 03/19/23 08:30 03/19/23 08:30 Temperature 98.2 F Pulse Rate 73 67 Respiratory Rate 18 13 Blood Pressure 160/99 H 154/98 H Pulse Oximetry 97 98 Oxygen Delivery Method Room Air 03/19/23 09:00 03/19/23 09:00 03/19/23 09:30 Temperature Pulse Rate 67 58 L Respiratory Rate 13 14 Blood Pressure 149/96 H Pulse Oximetry 98 98 Oxygen Delivery Method 03/19/23 09:30 03/19/23 10:00 03/19/23 10:00 Temperature Pulse Rate 60 Respiratory Rate 13 Blood Pressure 139/91 H 139/92 H Pulse Oximetry 99 Oxygen Delivery Method MDM - Chest Pain Differential Diagnosis Differential diagnosis: Likely fracture of rib, atypical chest pain and chest pain Lab Data 03/19/23 08:20 03/19/23 08:20 Labs: Lab Results 03/19/23 Range/Units 08:20 WBC 6.7 (4.5-11.0) X10^3/uL RBC 4.38 L (4.5-5.9) X10^6/uL Hgb 13.2 L (13.5-17.5) g/dL Hct 38.2 L (41-53) % MCV 87.1 (80-100) fL MCH 30.2 (26-34) PG MCHC 34.7 (30-36) % RDW 12.8 (11.6-14.8) % Plt Count 216 (150-400) X10^3/uL Neut % (Auto) 52.6 (50-75) % Lymph % (Auto) 33.4 (25-40) % [place] % (Auto) 10.4 (3-14) % Eos % (Auto) 2.5 (2-4) % Baso % (Auto) 1.1 (0-2) % Neut # (Auto) 3600 (2270-1446) /uL Lymph # (Auto) 2300 (9462-2573) /uL [place] # (Auto) 700 (0-900) /uL Eos # (Auto) 200 (0-450) /uL Baso # (Auto) 100 (0-100) /uL PT 10.4 (9.4-12.5) SECONDS INR 0.9 (0.9-1.3) APTT 29 (25.1-36.5) SECONDS Sodium 137 (137-145) mmol/L Potassium 3.8 (3.4-5.1) mmol/L Chloride 103 (98-107) mmol/L Carbon Dioxide 27 (22-32) mmol/L BUN 16 (9-20) mg/dL Creatinine 0.97 (0.66-1.25) mg/dL Estimated GFR > 60 (>60) mL/min BUN/Creatinine Ratio 16.5 (6-22) Glucose 138 H (70-100) mg/dL Calcium 10.1 (8.4-10.2) mg/dL Magnesium 1.9 (1.6-2.3) mg/dL Total Bilirubin 0.4 (0.2-1.3) mg/dL AST 24 (17-59) IU/L ALT 27 (<50) IU/L Alkaline Phosphatase 46 (38-126) U/L Total Creatine Kinase 287 H (55-170) U/L Troponin I < 0.012 (0.01-0.034) ng/mL Total Protein 7.4 (6.3-8.2) g/dL Albumin 4.4 (3.5-5.0) g/dL Globulin 3.0 (1.7-4.1) g/dL Albumin/Globulin Ratio 1.5 (1.0-2.8) Lipase 109 (23-300) U/L ECG Data Interpretation: normal sinus rhythm, normal intervals, no ST T wave changes, no STEMI MDM Narrative Medical decision making narrative: well-appearing patient with 1 week of chest pain. Pain is reproducible over the left pectoralis muscle, patient also endorses increasing his exercise activity prior to symptom onset. EKG is without concerning ischemic findings, Troponin undetectable. Patient reports concerned that his blood pressures are elevated, he reports blood pressures up to 150 systolic at home. He has on a very low dose of losartan. I advised the patient that he may increase his dose of losartan and recommended primary care follow up. Patient states that he is plenty of medications at home and does not need a refill. Discharge Plan Departure Patient Disposition: Home Clinical Impression: Chest pain, Hypertension Instructions: DI for Chest Pain Prescriptions: No Action Eliquis DVT-PE Treat 30D Start 5 mg (74 tabs) tablets,dose pack See Rx Instructions .ROUTE .COMPLEX Qty: 74 0RF Rx Instructions: orally per package directions Referrals: ProviderEric [Primary Care Provider] - Kenton Gallegos MD [Physician] - Stand Alone Forms: Patient Portal/API
[2023-03-19] MEDS: ASPIRIN 81 MG CHEW TAB 324 MG PO (08:46)
[2023-03-19 08:54] LABS: Troponin I < 0.012 ng/mL (0.01-0.034)
[2023-03-19] MEDS: SODIUM CHLORIDE 0.9% 1,000 ML 1000 ML IV (09:15)
[2023-03-19] MEDS: KETOROLAC 30 MG/ML VIAL 15 MG IV (09:15)
== END 2023-03-19 10:23 | disposition home or self-care (01) ==
PROVIDERS: Emergency Provider Emergency Medicine
DX: R07.9 Chest pain, unspecified (principal); I10 Essential (primary) hypertension; Z79.01 Long term (current) use of anticoagulants
CPT/HCPCS: 36415; 71045; 80053; 82550; 83690; 83735; 84484; 85025; 85610; 85730; 93005; 96361; 96374; 99284; J1885

== ENCOUNTER 2023-03-26 11:48 | Emergency (ER) | payer OTHER, SELFPAY ==
[2023-03-26 12:13] VITALS: BP 161/110; PULSE 68; RESP 24; TEMP 36.3; O2SAT 100; BMI 28.7
--- NOTE | 2023-03-26 12:24 | DI.RAD.S_ITS ---
PROCEDURE: XR CHEST 1V INDICATIONS: chest pain TECHNIQUE: One view of the chest was acquired. COMPARISON: [facility], CR, XR CHEST 1V, 03/19/2023, 8:44. FINDINGS: Surgical changes and devices: None. Lungs and pleura: Lungs are clear. No pleural effusions or pneumothorax. Mediastinum: Mediastinal contours appear normal. Heart size is normal. Bones and chest wall: No suspicious bony lesions. Overlying soft tissues appear unremarkable. IMPRESSION: No acute pulmonary process. Dictated by: Jahaira Ponce M.D. on 03/26/2023 at 13:25 Approved by: Jahaira Ponce M.D. on 03/26/2023 at 13:25
[2023-03-26 13:05] LABS: Add Manual Diff / Slide Review NO; Alanine Aminotransferase 29 IU/L (<50); Albumin 4.3 g/dL (3.5-5.0); Albumin Globulin Ratio 1.4 (1.0-2.8); Alkaline Phosphatase 56 U/L (38-126); Aspartate Aminotransferase 26 IU/L (17-59); BUN Creatinine Ratio 16.3 (6-22); Basophils Absolute Auto 100 /uL (0-100); Basophils Percent Auto 0.8 % (0-2); Bilirubin Total 0.6 mg/dL (0.2-1.3); Blood Urea Nitrogen 15 mg/dL (9-20); Calcium 9.5 mg/dL (8.4-10.2); Carbon Dioxide 28 mmol/L (22-32); Chloride 103 mmol/L (98-107); Creatine Kinase 331 U/L (55-170); Eosinophils Absolute Auto 100 /uL (0-450); Eosinophils Percent Auto 1.1 % (2-4); Estimated Glomerular Filt Rate > 60 mL/min (>60); Glucose 106 mg/dL (70-100); HEMOLYSIS < 15 (0-50); Hematocrit 36.5 % (41-53); Hemoglobin 12.5 g/dL (13.5-17.5); Lipase 69 U/L (23-300); Lymphocytes Absolute Auto 1900 /uL (1100-4500); Lymphocytes Percent Auto 30.4 % (25-40); Magnesium 2.1 mg/dL (1.6-2.3); Mean Corpuscular HGB Conc 34.3 % (30-36); Mean Corpuscular Hemoglobin 30.4 PG (26-34); Mean Corpuscular Volume 88.6 fL (80-100); Monocytes Absolute Auto 400 /uL (0-900); Monocytes Percent Auto 6.1 % (3-14); Neutrophils Absolute Auto 3900 /uL (1500-7000); Neutrophils Percent Auto 61.6 % (50-75); Platelet Count 202 X10^3/uL (150-400); Potassium 4.2 mmol/L (3.4-5.1); Red Blood Cell Count 4.12 X10^6/uL (4.5-5.9); Red Cell Distribution Width 13.3 % (11.6-14.8); Sodium 137 mmol/L (137-145); Total Protein 7.3 g/dL (6.3-8.2); White Blood Cell Count 6.4 X10^3/uL (4.5-11.0)
[2023-03-26 13:10] LABS: Prothrombin Time 11.2 SECONDS (9.4-12.5)
[2023-03-26 13:14] LABS: PTT Partial Thromboplastin Tim 27 SECONDS (25.1-36.5)
[2023-03-26 13:17] LABS: Troponin I < 0.012 ng/mL (0.01-0.034)
--- NOTE | 2023-03-26 13:56 | PC.NURSE ---
Patient called back to department from [facility] I have this tube in my arm I need to have pulled out so I can leave and wong after my suicidal RN went to [facility] and removed IV. Patient leaving without completing evaluation
--- NOTE | 2023-03-26 18:55 | ED.CHESTPAIN ---
HPI - Chest Pain General Chief Complaint: Chest Pain Stated Complaint: high BP, body pain Source: patient and family Mode of arrival: Ambulatory Limitations: no limitations Related Data Previous Rx's Medication Instructions Recorded apixaban 5 mg (74 tabs) tablets in See Rx Instructions PO .COMPLEX 03/28/21 a dose pack (Eliquis DVT-PE Treat #74 ea 30D Start) Allergies Allergy/AdvReac Type Severity Reaction Status Date / Time No Known Drug Allergies Allergy Verified 03/28/21 13:46 Patient History Social History Smoking Status: Former smoker Smoking Status: Former smoker tobacco type: cigarettes alcohol intake frequency: holidays/special occasions only Substance Use Type: does not use Exam Initial Vital Signs Initial Vital Signs: Vital Signs Temperature 97.4 F L 03/26/23 12:13 Pulse Rate 68 03/26/23 12:13 Respiratory Rate 24 03/26/23 12:13 Blood Pressure 161/110 H 03/26/23 12:13 Pulse Oximetry 100 03/26/23 12:13 Oxygen Delivery Method Room Air 03/26/23 12:13 Course Orders Ordered: ED Orders 03/26/23 12:24 XR chest 1V Stat 03/26/23 12:40 Complete Blood Count AUTO DIFF Stat Comprehensive Metabolic Panel Stat Lipase Stat Magnesium Stat PTT Partial Thromboplastin Oracio Stat Prothrombin Time INR Stat Troponin & CK Cardiac Panel Stat 03/26/23 12:42 EKG-12 Lead Stat Discontinued Medications Aspirin (Aspirin 81 Mg Chew Tab) 324 mg PO NOW ONE Stop: 03/26/23 12:25 Vital Signs Vital signs: Vital Signs - 8 hr 03/26/23 12:13 Temperature 97.4 F L Pulse Rate 68 Respiratory Rate 24 Blood Pressure 161/110 H Pulse Oximetry 100 Oxygen Delivery Method Room Air MDM - Chest Pain Lab Data 03/26/23 12:40 03/26/23 12:40 Labs: Lab Results 03/26/23 Range/Units 12:40 WBC 6.4 (4.5-11.0) X10^3/uL RBC 4.12 L (4.5-5.9) X10^6/uL Hgb 12.5 L (13.5-17.5) g/dL Hct 36.5 L (41-53) % MCV 88.6 (80-100) fL MCH 30.4 (26-34) PG MCHC 34.3 (30-36) % RDW 13.3 (11.6-14.8) % Plt Count 202 (150-400) X10^3/uL Neut % (Auto) 61.6 (50-75) % Lymph % (Auto) 30.4 (25-40) % [place] % (Auto) 6.1 (3-14) % Eos % (Auto) 1.1 L (2-4) % Baso % (Auto) 0.8 (0-2) % Neut # (Auto) 3900 (7415-0203) /uL Lymph # (Auto) 1900 (8641-7591) /uL [place] # (Auto) 400 (0-900) /uL Eos # (Auto) 100 (0-450) /uL Baso # (Auto) 100 (0-100) /uL PT 11.2 (9.4-12.5) SECONDS INR 1.0 (0.9-1.3) APTT 27 (25.1-36.5) SECONDS Sodium 137 (137-145) mmol/L Potassium 4.2 (3.4-5.1) mmol/L Chloride 103 (98-107) mmol/L Carbon Dioxide 28 (22-32) mmol/L BUN 15 (9-20) mg/dL Creatinine 0.92 (0.66-1.25) mg/dL Estimated GFR > 60 (>60) mL/min BUN/Creatinine Ratio 16.3 (6-22) Glucose 106 H (70-100) mg/dL Calcium 9.5 (8.4-10.2) mg/dL Magnesium 2.1 (1.6-2.3) mg/dL Total Bilirubin 0.6 (0.2-1.3) mg/dL AST 26 (17-59) IU/L ALT 29 (<50) IU/L Alkaline Phosphatase 56 (38-126) U/L Total Creatine Kinase 331 H (55-170) U/L Troponin I < 0.012 (0.01-0.034) ng/mL Total Protein 7.3 (6.3-8.2) g/dL Albumin 4.3 (3.5-5.0) g/dL Globulin 3.0 (1.7-4.1) g/dL Albumin/Globulin Ratio 1.4 (1.0-2.8) Lipase 69 (23-300) U/L Imaging Data Chest x-ray: Radiologist's Impression: Close Chest X-Ray (Signed) Jahaira Ponce - 03/26/23 Chest X-Ray (Signed) Leobardo Stricklandlizet - 03/19/23 KUB X-Ray (Signed) DarrellSimone - 09/03/22 Scrotum Ultrasound (Signed) Mariano Garcia - 09/20/21 Chest CTA (Signed) Khoi Murphy - 03/28/21 Chest X-Ray (Signed) Mariano Garcia - 03/28/21 [facility] [address] [address] XRay Report Signed Patient: Luca Alicea MR#: [id number] : 1975 Acct:[id number] Age/Sex: 47 / M Date of Service: 03/26/23 Loc: ED Accession Number: [id number] Procedure: XR chest 1V Ordering Provider: Alicia Gilmore D.O. PROCEDURE: XR CHEST 1V INDICATIONS: chest pain TECHNIQUE: One view of the chest was acquired. COMPARISON: [facility], , XR CHEST 1V, 03/19/2023, 8:44. FINDINGS: Surgical changes and devices: None. Lungs and pleura: Lungs are clear. No pleural effusions or pneumothorax. Mediastinum: Mediastinal contours appear normal. Heart size is normal. Bones and chest wall: No suspicious bony lesions. Overlying soft tissues appear unremarkable. IMPRESSION: No acute pulmonary process. Dictated by: Jahaira Ponce M.D. on 03/26/2023 at 13:25 Approved by: Jahaira Ponce M.D. on 03/26/2023 at 13:25 ECG Data Attestation: I personally reviewed and interpreted this ECG as follows: Interpretation: Sinus bradycardia, sinus arrhythmia, rate of 58 [place] 132 QRS of 104 QTC of 402. No acute ST elevation noted. MDM Narrative Medical decision making narrative: Labs reviewed hemoglobin of 12.5, coags, CMP glucose of 106, total CK was 331. Negative troponin. Chest x-ray was read as negative. Patient left without being seen. Discharge Plan Departure Patient Disposition: Left Without Being Seen Clinical Impression: Patient left without being seen Prescriptions: No Action Crys DVT-PE Treat 30D Start 5 mg (74 tabs) tablets,dose pack See Rx Instructions .ROUTE .COMPLEX Qty: 74 0RF Rx Instructions: orally per package directions
== END 2023-03-26 14:01 | disposition left against medical advice (07) ==
PROVIDERS: Emergency Provider Emergency Medicine
DX: R07.9 Chest pain, unspecified (principal)
CPT/HCPCS: 36415; 71045; 80053; 82550; 83690; 83735; 84484; 85025; 85610; 85730; 93005; 99283

== ENCOUNTER 2023-04-21 21:59 | Emergency (ER) | payer OTHER, SELFPAY ==
[2023-04-21 22:02] VITALS: BP 148/100; PULSE 78; RESP 18; TEMP 36.4; O2SAT 100; BMI 28.1
--- NOTE | 2023-04-21 22:12 | DI.US.S_ITS ---
PROCEDURE: US SCROTUM INDICATIONS: LEFT SCROTAL PAIN TECHNIQUE: Real-time scanning was performed of the scrotum and testicles, with image documentation. Color and pulse Doppler interrogation was performed of both testicles. COMPARISON: [facility], , US SCROTUM, 09/20/2021, 23:29. FINDINGS: Right: Testicle is normal in size at 2.6 x 3.1 x 5.0 cm, and homogenous in echotexture. Epididymis is normal in overall size and morphology. No hydrocele or varicoceles. Overlying scrotal skin is normal in thickness. Left: Testicle is normal in size at 2.5 x 3.5 x 4.6 cm, and homogeneous in echotexture. Epididymis is normal in overall size and morphology. No hydrocele or varicoceles. Overlying scrotal skin is normal in thickness. There is a small left epididymal cyst measuring 6 mm. Doppler: Color and pulse Doppler demonstrate normal and symmetric arterial flow in both testicles. IMPRESSION: Incidental finding of a small left epididymal cyst. No evidence of torsion or infection. Dictated by: Bora Mcgowan M.D. on 04/21/2023 at 22:53 Approved by: Bora Mcgowan M.D. on 04/21/2023 at 22:54
[2023-04-21 23:17] LABS: Appearance Urine UA CLEAR; Bilirubin Urine UA NEGATIVE (NEGATIVE); Color Urine UA YELLOW; Glucose Urine UA NEGATIVE (Negative); Ketones Urine UA NEGATIVE (NEGATIVE); Leukocyte Esterase Urine UA NEGATIVE (NEGATIVE); Nitrite Urine UA NEGATIVE (Negative); Occult Blood Urine UA NEGATIVE (Negative); Protein Urine UA NEGATIVE (Negative); Urobilinogen Urine UA 0.2 E.U./dL (0.2)
[2023-04-21 23:27] LABS: Bacteria Urine None Seen; Culture Indicated Urine Cult Not Indicated; RBC Urine None Seen (0-5/HPF); Squamous Epithelial Cell Urine None Seen (0-5/HPF); Urine Volume 10mL (spun); WBC Urine None Seen (0-5/HPF)
--- NOTE | 2023-04-22 00:28 | ED_ITS ---
HPI - Male Genitourinary General Chief complaint: Urogenital-Male Stated complaint: pain in scrotum Time Seen by Provider: 04/21/23 22:13 Source: patient Mode of arrival: Ambulatory Limitations: no limitations History of Present Illness HPI Narrative: 45-year-old male, prior smoker history, history of hypertension presents with complaint of left testicular pain that has been going on for several weeks. Patient states he has had issues in the past as well. States pain has been much more intense the last several days. He denies fevers or chills but has felt hot. Patient states he has been checking with a thermometer but has not been elevated. Patient states pain is worse with compression of the left testicle. He states there seems like there might be a little bit redness but he has not sure of the testicle. He states it feels of the testicle but above as well. He states he has had some dysuria but no urgency, no incontinence no discharge. Patient states no abdominal back or flank pain currently. He has had some nausea occasionally but no vomiting. Presents today as pain was significantly worse than prior days. States he did not take anything for pain. He has seen urology past sounds. Patient states he is on medication for hypertension, beta sindy, states he was told he is prediabetic. His prior vasectomy then has had pain issues on and off since then in 2007. No known drug allergies. Former smoker, no recreational drugs. Patient has seen urology in the past. Related Data Previous Rx's Medication Instructions Recorded apixaban 5 mg (74 tabs) tablets in See Rx Instructions PO .COMPLEX 03/28/21 a dose pack (Eliquis DVT-PE Treat #74 ea 30D Start) Allergies Allergy/AdvReac Type Severity Reaction Status Date / Time No Known Drug Allergies Allergy Verified 03/28/21 13:46 Review of Systems Review of Systems ROS Unobtainable: All systems reviewed & are unremarkable except as noted in HPI and below Patient History Social History Smoking Status: Former smoker Smoking Status: Former smoker tobacco type: cigarettes alcohol intake frequency: holidays/special occasions only Substance Use Type: does not use Exam Narrative Exam Narrative: GENERAL: Alert and oriented x three, male in mild distress. HEENT: Head normocephalic, atraumatic, EOMI, pupils reactive, face symmetric, moist mucous membranes NECK: Supple, full range of motion CARDIOVASCULAR: Regular rate and rhythm without murmurs, rubs or gallops. RESPIRATORY: Breath sounds equal bilaterally, no wheezes rales or rhonchi. ABDOMEN: Soft, nontender. Normoactive bowel sounds all 4 quadrants. No guarding or rebound, rigidity, no mass : No CVA tenderness. Male: normal external examination, no penile discharge or lesions, testicles non-tender, no obvious erythema, swelling or other skin changes. Cremasteric reflex intact, no inguinal hernias noted. EXTREMITIES: Normal range of motion, no clubbing or edema. Neurovascularly intact NEUROLOGICAL: Cranial nerves II through XII grossly intact. Moving all extremities SKIN: Warm, dry, no petechiae, no rashes or lesions. Initial Vital Signs Initial Vital Signs: Vital Signs Temperature 97.6 F 04/21/23 22:02 Pulse Rate 78 04/21/23 22:02 Respiratory Rate 18 04/21/23 22:02 Blood Pressure 148/100 H 04/21/23 22:02 Pulse Oximetry 100 04/21/23 22:02 Oxygen Delivery Method Room Air 04/21/23 22:02 Course Orders Ordered: ED Orders 04/21/23 22:12 US scrotum Stat 04/21/23 22:15 Chlamydia Gonorrhea PCR -URINE Stat UA Complete [Urinalysis and Microscopic] Stat Vital Signs Vital signs: Vital Signs - 8 hr 04/21/23 22:02 04/22/23 01:24 Temperature 97.6 F 98.1 F Pulse Rate 78 82 Respiratory Rate 18 18 Blood Pressure 148/100 H 144/78 H Pulse Oximetry 100 98 Oxygen Delivery Method Room Air Room Air MDM - Male Genitourinary Lab Data Labs: Lab Results 04/21/23 Range/Units 22:15 Urine Color Yellow Urine Appearance Clear Urine pH 7.0 (4.5-8.0) Ur Specific [place] 1.010 (1.000-1.035) Urine Protein Negative (Negative) Urine Glucose (UA) Negative (Negative) g/dL Urine Ketones Negative (NEGATIVE) Urine Occult Blood Negative (Negative) Urine Nitrate Negative (Negative) Urine Bilirubin Negative (NEGATIVE) Urine Urobilinogen 0.2 (0.2) E.U./dL Ur Leukocyte Esterase Negative (NEGATIVE) Urine RBC None seen (0-5/HPF) Urine WBC None seen (0-5/HPF) Ur Squamous Epith Cells None seen (0-5/HPF) Urine Bacteria None seen (None) Ur Culture Indicated? Cult not indicated Vol Urine Centrifuged 10ml (spun) Ur Chlamydia DNA (PCR) Not detected N gonorrhoeae DNA (PCR) Not detected Urine Dip Bedside Urine Glucose Negative Bedside Urine Bilirubin - Negative Bedside Urine Ketone - Negative Urine Specific [place] 1.015 Bedside Urine Occult Blood - Negative Bedside Urine pH 7.0 Bedside Urine Protein - Negative Bedside Urine Urobilinogen - Negative Bedside Urine Nitrite - Negative Bedside Urine Leukocytes - Negative Esterase Imaging Data scrotum US: Radiologist's Impression: Close Scrotum Ultrasound (Signed) Bora Mcgowan - 04/21/23 Chest X-Ray (Signed) Jahaira Ponce - 03/26/23 Chest X-Ray (Signed) Clarisse Strickland - 03/19/23 KUB X-Ray (Signed) Simone Ramírez - 09/03/22 Scrotum Ultrasound (Signed) Mariano Garcia - 09/20/21 Chest CTA (Signed) Khoi Murphy - 03/28/21 Chest X-Ray (Signed) Mariano Garcia - 03/28/21 [place] [address] Ultrasound Report Signed Patient: Luca Alicea MR#: [id number] : 1975 Acct:[id number] Age/Sex: 47 / M Date of Service: 04/21/23 Loc: ED Accession Number: [id number] Procedure: US scrotum Ordering Provider: Alicia Gilmore D.O. PROCEDURE: US SCROTUM INDICATIONS: LEFT SCROTAL PAIN TECHNIQUE: Real-time scanning was performed of the scrotum and testicles, with image documentation. Color and pulse Doppler interrogation was performed of both testicles. COMPARISON: [facility], US SCROTUM, 09/20/2021, 23:29. FINDINGS: Right: Testicle is normal in size at 2.6 x 3.1 x 5.0 cm, and homogenous in echotexture. Epididymis is normal in overall size and morphology. No hydrocele or varic oceles. Overlying scrotal skin is normal in thickness. Left: Testicle is normal in size at 2.5 x 3.5 x 4.6 cm, and homogeneous in echotexture. Epididymis is normal in overall size and morphology. No hydrocele or varicoceles. Overlying scrotal skin is normal in thickness. There is a small left epididymal cyst measuring 6 mm. Doppler: Color and pulse Doppler demonstrate normal and symmetric arterial flow in both testicles. IMPRESSION: Incidental finding of a small left epididymal cyst. No evidence of torsion or infection. Dictated by: Bora Mcgowan M.D. on 04/21/2023 at 22:53 Approved by: Bora Mcgowan M.D. on 04/21/2023 at 22:54 MDM Narrative Medical decision making narrative: 47-year-old male with scrotal ultrasound that showed left epididymal cyst. UA is negative urine GC is negative. Patient states pain has improved at this time. No obvious changes to skin such as cellulitis. Patient has had pain on and off intermittently in the past recommended to follow up with Urology. Contact given. Discussed return precautions. Discharge Plan Departure Patient Disposition: Home Clinical Impression: Left testicular pain, Cyst of epididymis Activity Restrictions/Additional Instructions: Your imaging today does show a small epididymal cyst on the left. Urine studies do not show any obvious sign of infection. I would recommend follow up with Urology if symptoms are persisting. Contact is given for local urology or you can follow up with your prior urologist. You may take Tylenol up to a 1000 mg every 6 hours and/or ibuprofen up to 600 mg every 6 hours as needed. Please return for fevers, rapidly worsening pain new redness, swelling, new discharge, persistent nausea or vomiting no abdominal back or flank pain or other new or concerning changes. Prescriptions: No Action Eliquis DVT-PE Treat 30D Start 5 mg (74 tabs) tablets,dose pack See Rx Instructions .ROUTE .COMPLEX Qty: 74 0RF Rx Instructions: orally per package directions Referrals: Provider,Eric DODD [Primary Care Provider] - Felice Jeffers MD [Physician] - Stand Alone Forms: Patient Portal/API
[2023-04-22 00:46] LABS: Urine N gonorrhoeae NOT DETECTED
[2023-04-22 00:48] LABS: Urine Chlamydia NOT DETECTED
[2023-04-22 01:24] VITALS: BP 144/78; PULSE 82; RESP 18; TEMP 36.7; O2SAT 98
== END 2023-04-22 01:25 | disposition home or self-care (01) ==
PROVIDERS: Emergency Provider Emergency Medicine
DX: N50.812 Left testicular pain (principal); N50.3 Cyst of epididymis
CPT/HCPCS: 76870; 81001; 81003; 87491; 87591; 99282; 99283

== ENCOUNTER 2023-07-18 09:02 | Emergency (ER) | payer OTHER, SELFPAY ==
[2023-07-18 09:07] VITALS: BP 177/97; PULSE 85; O2SAT 97
--- NOTE | 2023-07-18 09:07 | ED_ITS ---
HPI - Male Genitourinary General Chief complaint: Urogenital-Male Stated complaint: PAIN URETHRA AND BLADDER, SWELLING ON FEET Time Seen by Provider: 07/18/23 09:05 Source: patient, RN notes reviewed and old records reviewed Mode of arrival: Ambulatory Limitations: no limitations History of Present Illness HPI Narrative: 45-year-old male, prior tobacco use, history of hypertension presents with complaint of some sensation of swelling in his testicles, pain and discomfort particularly at the base of the penis and some discomfort after urination. Patient also notes 1 episode of hematuria proximally week to 10 days ago. He also noted that he had discomfort with ejaculation proximally 10 days ago. Patient has had testicular pain in the past. He also notes some bilateral flank and back pain with little bit of radiation down his legs. No numbness tingling or weakness. No difficulty with movement. Denies any abdominal pain. No nausea or vomiting. He is felt like he has had some subjective fevers but when he checks he states he has not been febrile. Patient has seen Urology in the past. Has had prior vasectomy in 2007. No known drug allergy, former smoker, no recreational drugs. Related Data Previous Rx's Medication Instructions Recorded apixaban 5 mg (74 tabs) tablets in See Rx Instructions PO .COMPLEX 03/28/21 a dose pack (EliquFitOrbit DVT-PE Treat #74 ea 30D Start) sulfamethoxazole 800 1 tab PO BID 28 days #56 tabs 07/18/23 mg-trimethoprim 160 mg tablet (Bactrim DS) Allergies Allergy/AdvReac Type Severity Reaction Status Date / Time No Known Drug Allergies Allergy Verified 03/28/21 13:46 Review of Systems Review of Systems ROS Unobtainable: All systems reviewed & are unremarkable except as noted in HPI and below Patient History Social History Smoking Status: Former smoker Smoking Status: Former smoker tobacco type: cigarettes alcohol intake frequency: holidays/special occasions only Substance Use Type: does not use Exam Narrative Exam Narrative: GENERAL: Alert and oriented x three, mild distress, patient is ambulatory HEENT: Head normocephalic, atraumatic, EOMI, pupils reactive, face symmetric, moist mucous membranes NECK: Supple, full range of motion CARDIOVASCULAR: Regular rate and rhythm without murmurs, rubs or gallops. RESPIRATORY: Breath sounds equal bilaterally, no wheezes rales or rhonchi. ABDOMEN: Soft, nontender. Normoactive bowel sounds all 4 quadrants. No guarding or rebound, rigidity, no mass : No CVA tenderness. Male: normal external examination, no penile discharge or lesions, testicles non-tender, cremasteric reflex intact, no inguinal hernias noted. BACK: No cervical, thoracic or lumbar vertebral point tenderness. Patient has normal range of motion. Patient's gait is [antalgic/normal]. Muscle strength is 5/5 in lower extremities, no saddle anesthesia. Sensation is intact. EXTREMITIES: Normal range of motion, no clubbing or edema. Neurovascularly intact NEUROLOGICAL: Cranial nerves II through XII grossly intact. Moving all extremities SKIN: Warm, dry, no petechiae, no rashes or lesions. Initial Vital Signs Initial Vital Signs: Vital Signs Pulse Rate 85 07/18/23 09:07 Blood Pressure 177/97 H 07/18/23 09:07 Pulse Oximetry 97 07/18/23 09:07 Course Orders Ordered: ED Orders 07/18/23 09:19 US scrotum Stat 07/18/23 09:21 Chlamydia Gonorrhea PCR -URINE Stat UA Complete [Urinalysis and Microscopic] Stat Vital Signs Vital signs: Vital Signs - 8 hr 07/18/23 12:13 Pulse Rate 61 Respiratory Rate 14 Blood Pressure 152/97 H Pulse Oximetry 98 Oxygen Delivery Method Room Air MDM - Male Genitourinary Lab Data Labs: Lab Results 07/18/23 Range/Units 09:21 Urine Color Yellow Urine Appearance Clear Urine pH 5.5 (4.5-8.0) Ur Specific [place] <=1.005 (1.000-1.035) Urine Protein Negative (Negative) Urine Glucose (UA) Negative (Negative) g/dL Urine Ketones Negative (NEGATIVE) Urine Occult Blood Negative (Negative) Urine Nitrate Negative (Negative) Urine Bilirubin Negative (NEGATIVE) Urine Urobilinogen 0.2 (0.2) E.U./dL Ur Leukocyte Esterase Negative (NEGATIVE) Urine RBC None seen (0-5/HPF) Urine WBC None seen (0-5/HPF) Ur Squamous Epith Cells None seen (0-5/HPF) Urine Bacteria None seen (None) Ur Culture Indicated? Cult not indicated Vol Urine Centrifuged 10ml (spun) Ur Chlamydia DNA (PCR) Not detected N gonorrhoeae DNA (PCR) Not detected Urine Dip Bedside Urine Glucose Negative Bedside Urine Bilirubin - Negative Bedside Urine Ketone - Negative Urine Specific [place] 1.010 Bedside Urine Occult Blood - Negative Bedside Urine pH 6.0 Bedside Urine Protein - Negative Bedside Urine Urobilinogen - Negative Bedside Urine Nitrite - Negative Bedside Urine Leukocytes - Negative Esterase Imaging Data scrotum US: Radiologist's Impression: Luca Alicea??47??M??1975 ? Allergy/Adv: No Known Drug Allergies (More??) Close Scrotum Ultrasound (Signed) GildardoPrafulAngier - 07/18/23 Scrotum Ultrasound (Signed) Bora Mcgowan - 04/21/23 Chest X-Ray (Signed) Jahaira Ponce - 03/26/23 Chest X-Ray (Signed) Clarisse Strickland - 03/19/23 KUB X-Ray (Signed) Simone Ramírez - 09/03/22 Scrotum Ultrasound (Signed) Mariano Garcia - 09/20/21 Chest CTA (Signed) Khoi Murphy - 03/28/21 Chest X-Ray (Signed) Mariano Garcia - 03/28/21 Launch?[place] [address] Ultrasound Report Signed Patient: Luca Alicea MR#: [id number] : 1975 Acct:[id number] Age/Sex: 47 / M Date of Service: 07/18/23 Loc: ED Accession Number: [id number] Procedure: US scrotum Ordering Provider: Alicia Gilmore D.O. PROCEDURE: US SCROTUM INDICATIONS: pain/swelling testicles/base on penis TECHNIQUE: Real-time scanning was performed of the scrotum and testicles, with image documentation. Color and pulse Doppler interrogation was performed of both testicles. COMPARISON: [facility], , US SCROTUM, 04/21/2023, 22:22. FINDINGS: Right: Testicle is normal in size at 4.8 x 2.5 x 2.8 cm, and homogenous in echotexture. Epididymis is normal in overall size and morphology. No hydrocele or varic oceles. Overlying scrotal skin is normal in thickness. Left: Testicle is normal in size at 4.8 x 2.3 x 2.9 cm, and homogeneous in echotexture. Epididymis is normal in overall size and morphology. Incidental 6 mm left epididymal cyst. No hydrocele or varicoceles. Overlying scrotal skin is normal in thickness. Doppler: Color and pulse Doppler demonstrate normal and symmetric arterial flow in both testicles. IMPRESSION: Unremarkable study. No testicular mass, orchitis, epididymitis, or testicular torsion. Dictated by: Everette Ewing M.D. on 07/18/2023 at 10:49 Approved by: Everette Ewing M.D. on 07/18/2023 at 10:50 [facility] Narrative Medical decision making narrative: 47-year-old male who complains of some back pain which sounds radicular in nature but also having some discomfort with urination or immediately thereafter, 1 episode of hematuria reported. Patient has had issues with general year no pain in the past. Patient's exam overall is benign. No red flag symptoms. UA is negative. Urine GC is negative. Scrotal ultrasound showed no significant changes no mass, orchitis epididymitis or testicular torsion noted. Overlying skin is normal thickness. Patient's examination also has some back pain associated but had felt like something had popped out place. On examination changes seem most consistent with musculoskeletal. He has had testicular pain on in the past. He has been treated for prostatitis once in the past discussed with patient, UA, urine GC and scrotal ultrasound were negative. Does not have any changes be consistent with kidney stone or other acute changes. Patient notes he has seen Urology back in January, he states there was some sort of thing hanging down on cystoscopy that they removed they told him it did note it was but that the pathology came back negative. He has not been back since. Discussed findings from today we will treat for potential prostatitis and have patient follow up with Urology. He was seeing [facility] but would like someone more local. All questions answered. Patient denied reviewed return precautions. Discharge Plan Departure Patient Disposition: Home Clinical Impression: Dysuria, Prostatitis Activity Restrictions/Additional Instructions: Please follow up with Urology for recheck. Please call to set up an appointment. Contact is included below. You can take Tylenol up to a 1000 mg every 6 hours and/or ibuprofen up to 600 mg every 6 hours. Please return for fevers rapidly worsening symptoms new or worsening abdominal back or flank pain, persistent vomiting, new redness, swelling or other skin changes of the testicles, penis or elsewhere, difficulty or inability urinate or other new or concerning changes. Prescriptions: New sulfamethoxazole-trimethoprim [Bactrim DS] 800-160 mg tablet 1 tab PO BID 28 Days Qty: 56 0RF No Action Eliquis DVT-PE Treat 30D Start 5 mg (74 tabs) tablets,dose pack See Rx Instructions .ROUTE .COMPLEX Qty: 74 0RF Rx Instructions: orally per package directions Referrals: ProviderEric [Primary Care Provider] - Felice Jeffers MD [Physician] - Stand Alone Forms: Patient Portal/API
[2023-07-18 09:19] VITALS: BP 177/97; PULSE 74; RESP 19; TEMP 36.6; O2SAT 97; BMI 31.8
--- NOTE | 2023-07-18 09:19 | DI.US.S_ITS ---
PROCEDURE: US SCROTUM INDICATIONS: pain/swelling testicles/base on penis TECHNIQUE: Real-time scanning was performed of the scrotum and testicles, with image documentation. Color and pulse Doppler interrogation was performed of both testicles. COMPARISON: [facility], , US SCROTUM, 04/21/2023, 22:22. FINDINGS: Right: Testicle is normal in size at 4.8 x 2.5 x 2.8 cm, and homogenous in echotexture. Epididymis is normal in overall size and morphology. No hydrocele or varicoceles. Overlying scrotal skin is normal in thickness. Left: Testicle is normal in size at 4.8 x 2.3 x 2.9 cm, and homogeneous in echotexture. Epididymis is normal in overall size and morphology. Incidental 6 mm left epididymal cyst. No hydrocele or varicoceles. Overlying scrotal skin is normal in thickness. Doppler: Color and pulse Doppler demonstrate normal and symmetric arterial flow in both testicles. IMPRESSION: Unremarkable study. No testicular mass, orchitis, epididymitis, or testicular torsion. Dictated by: Everette Ewing M.D. on 07/18/2023 at 10:49 Approved by: Everette Ewing M.D. on 07/18/2023 at 10:50
[2023-07-18 09:41] LABS: Appearance Urine UA CLEAR; Bilirubin Urine UA NEGATIVE (NEGATIVE); Color Urine UA YELLOW; Glucose Urine UA NEGATIVE (Negative); Ketones Urine UA NEGATIVE (NEGATIVE); Leukocyte Esterase Urine UA NEGATIVE (NEGATIVE); Nitrite Urine UA NEGATIVE (Negative); Occult Blood Urine UA NEGATIVE (Negative); Protein Urine UA NEGATIVE (Negative); Specific Gravity Urine UA <=1.005 (1.000-1.035); Urobilinogen Urine UA 0.2 E.U./dL (0.2); pH Urine UA 5.5 (4.5-8.0)
--- NOTE | 2023-07-18 09:42 | PC.NURSE ---
Patient reports blood from urethra on has had some discomfort. Noticed pain with ejaculation last night. Had a fall a few days ago while working and noticed pain in hip with some cramping in flank. Noticed despite drinking water urine was not clear.
[2023-07-18 09:43] LABS: Urine Volume 10mL (spun)
[2023-07-18 09:44] LABS: Bacteria Urine None Seen; Culture Indicated Urine Cult Not Indicated; RBC Urine None Seen (0-5/HPF); Squamous Epithelial Cell Urine None Seen (0-5/HPF); WBC Urine None Seen (0-5/HPF)
[2023-07-18 11:06] LABS: Urine N gonorrhoeae NOT DETECTED
[2023-07-18 11:15] LABS: Urine Chlamydia NOT DETECTED
[2023-07-18 12:13] VITALS: BP 152/97; PULSE 61; RESP 14; O2SAT 98
== END 2023-07-18 12:15 | disposition home or self-care (01) ==
PROVIDERS: Emergency Provider Emergency Medicine
DX: N41.9 Inflammatory disease of prostate, unspecified (principal); R30.0 Dysuria
CPT/HCPCS: 76870; 81001; 81003; 87491; 87591; 99283